=== PATIENT | female | born 1985 | race Caucasian/White ===

== ENCOUNTER 2022-10-14 09:14 | Inpatient (IN) ==
[2022-10-14 09:49] LABS: Urine Appearance Cloudy; Urine Bilirubin Negative (Negative); Urine Blood Negative (Negative); Urine Color Yellow; Urine Glucose Negative (Negative); Urine Ketones Negative (Negative); Urine Nitrite Negative (Negative); Urine Protein Negative (Negative); Urine Specific Gravity 1.015 (1.002-1.030); Urine Urobilinogen Negative (Negative)
[2022-10-14 10:16] LABS: Urine Benzodiazepine Screen None Detected (None Detect); Urine Cannabinoids Screen Presumptive Positive (None Detect); Urine Opiates Screen None Detected (None Detect)
[2022-10-14] MEDS ORDERED: Nicotine PATCH 21 MG/24 HR PATCH TRANSDERM ONE (12:46)
[2022-10-14] MEDS ORDERED: Nicotine GUM 4MG FRUIT FLAVOR PO ONE (12:47)
[2022-10-14] MEDS ORDERED: Al Hydrox/Mg Hydrox/Simet LIQ 30 ML UDC PO PRN (13:34)
[2022-10-15] MEDS ORDERED: CARIPRAZINE 1.5 MG PO SCH (09:00)
[2022-10-15 12:27] LABS: Urine Benzodiazepine Screen None Detected (None Detect); Urine Cannabinoids Screen Presumptive Positive (None Detect); Urine Opiates Screen None Detected (None Detect)
[2022-10-15 13:23] LABS: Urine Buprenorphine Screen None Detected (None Detect); Urine Fentanyl Screen None Detected (None Detect); Urine Hydrocodone Screen None Detected (None Detect)
[2022-10-16 08:15] LABS: HDL Cholesterol 25.7 mg/dL
[2022-10-16] MEDS ORDERED: PTO: Cariprazine 1.5 mg CAP (NF) PO SCH (09:00)
[2022-10-16] MEDS: Nicotine GUM 4MG FRUIT FLAVOR PO PRN (09:59)
[2022-10-17] MEDS ORDERED: PTO:Cariprazine 3 mg CAP (NF) PO SCH (09:00)
[2022-10-17 09:23] VITALS: BP 113/82
[2022-10-17] MEDS: Nicotine GUM 4MG FRUIT FLAVOR PO PRN (10:15)
== END 2022-10-17 11:35 | disposition home or self-care (01) | DRG 753 ==
LOC: ED 09:14 → EDHOLD 13:34 → BSU 14:49
PROVIDERS: ADMIT Psychiatry & Neurology Psychiatry; ATTEND Student in an Organized Health Care Education/Training Program